=== PATIENT | male | born 1975 | race Caucasian/White ===

== ENCOUNTER → 2019-12-14 15:13 | Outpatient (BNVA) | payer OTHER, SELFPAY | PROVIDERS: Family Provider Urology; PCP Urology; Visit Provider Internal Medicine | DX: E03.9 Hypothyroidism, unspecified (principal) | CPT/HCPCS: 84443 ==

== ENCOUNTER → 2020-04-18 13:26 | Outpatient (BNVA) | payer OTHER, SELFPAY | PROVIDERS: Family Provider Urology; PCP Urology; Visit Provider Nurse Practitioner Family | DX: R30.0 Dysuria (principal); N30.01 Acute cystitis with hematuria | CPT/HCPCS: 81000 ==

== ENCOUNTER → 2020-04-19 09:02 | Outpatient (BNVA) | payer OTHER, SELFPAY | PROVIDERS: Family Provider Urology; PCP Urology; Visit Provider Nurse Practitioner Family | DX: R30.0 Dysuria (principal); N30.01 Acute cystitis with hematuria | CPT/HCPCS: 87491; 87591 ==

== ENCOUNTER → 2020-04-26 16:34 | Outpatient (BNVA) | payer OTHER, SELFPAY | PROVIDERS: Family Provider Urology; PCP Urology; Visit Provider Nurse Practitioner Family | DX: Z20.828 Contact with and (suspected) exposure to other viral communicable diseases (principal) | CPT/HCPCS: 87635 ==

== ENCOUNTER 2020-05-19 14:42 | Outpatient (CLI) | payer OTHER, SELFPAY ==
--- NOTE | 2020-05-19 15:00 | XR_ITS ---
WS: [id number] ABDOMEN: SUPINE FILM HISTORY: KIDNEY STONE COMPARISON: 10/05/2014 Increased amount of air within the colon. No organomegaly. Right kidney: No renal or ureteral stone identified. Left kidney: 5 mm calcification projects over the expected location of the mid LEFT kidney. No ureter al calcification. XR/XR KUB [id number] IMPRESSION: 5 mm LEFT renal calcification.
== END 2020-05-19 14:43 | disposition home or self-care (01) ==
LOC: RAD 14:55
PROVIDERS: PCP Nurse Practitioner Family; Visit Provider Nurse Practitioner Family
DX: N20.0 Calculus of kidney (principal)
CPT/HCPCS: 74018; 81003

== ENCOUNTER → 2020-05-20 14:14 | Outpatient (BNVA) | payer OTHER, SELFPAY | PROVIDERS: PCP Nurse Practitioner Family; Visit Provider Urology | DX: N20.0 Calculus of kidney (principal) | CPT/HCPCS: 82365; 88300 ==

== ENCOUNTER 2020-08-04 18:27 | Observation (INO) | payer OTHER, SELFPAY ==
[2020-08-04 18:35] VITALS: BP 151/70; PULSE 83; RESP 16; TEMP 36.5; O2SAT 100; BMI 22.6
[2020-08-04 19:17] LABS: Basophils % 0.4 %; Eosinophils % 0.4 %; Hematocrit 42.7 % (42.0-52.0); Hemoglobin 14.6 g/dL (11.7-16.6); Lymphocytes # 1.2 10^3/uL (0.8-4.8); Lymphocytes % 12.1 %; Mean Corpuscular HGB Conc 34.2 g/dL (30.0-36.0); Mean Corpuscular Hemoglobin 30.5 pg (28.0-34.0); Mean Corpuscular Volume 89.3 fL (80-94); Mean Platelet Volume 9.3 fL (7.4-10.4); Monocytes # 0.3 10^3/uL (0.2-0.9); Monocytes % 2.5 %; Neutrophils # 8.33 10^3/uL (1.8-7.7); Neutrophils % 84.4 %; Nucleated Red Blood Cells % 0 %; Platelet Count 245 10^3/cmm (130-400); Red Blood Count 4.78 10^6/uL (4.1-5.3); Red Cell Distribution Width 12.9 % (12.1-15.1); White Blood Count 9.9 10^3/uL (4.0-10.0)
[2020-08-04 19:36] LABS: Amphetamines Screen Urine Negative (Negative); Barbiturates Screen Urine Negative (Negative); Benzodiazepines Screen Urine Negative (Negative); Cocaine Screen Urine Negative (Negative); Opiate Screen Urine Negative (Negative); PCP Screen Urine Negative (Negative); THC Screen Urine Negative (Negative)
[2020-08-04 19:40] LABS: Alanine Aminotransferase 30 U/L (0-41); Albumin Level 4.7 g/dL (3.5-5.2); Alkaline Phosphatase 69 IU/L (40-130); Anion Gap 15.1 (5-19); Aspartate Amino Transferase 22 U/L (0-40); Blood Urea Nitrogen 13 mg/dL (6-20); Calcium 9.7 mg/dL (8.5-10.5); Carbon Dioxide 25 mmol/L (22-29); Chloride 103 mmol/L (98-107); Globulin 2.7 g/dL (1.3-4.6); Glomerular Filtration Rate 80.8 mL/min (90-130); Glucose 111 mg/dL (65-115); Osmolality Calculated 289 mOsm/kg (285-295); Potassium 4.1 mmol/L (3.5-5.1); Sodium 139 mmol/L (136-145); Total Bilirubin 0.3 mg/dL (0.15-1.2); Total Protein 7.4 g/dL (6.6-8.7)
--- NOTE | 2020-08-04 19:41 | PC.NURSE ---
patient changed out into gown and paper scrubs with belongings placed into patient belonging bag. Patient's brother is in room and stated that he will take patient belongings home with him. Patient belongings consist of 1 pair blue jeans, 1 shirt, 1 jacket, 1 pair cowboy boots, 1 ball cap, and patient wallet.
[2020-08-04 19:50] LABS: Acetaminophen < 5.0 ug/mL (10-30); Alcohol Level < 10 mg/dL (0-10); Salicylate < 0.3 mg/dL (3-10)
[2020-08-04 21:40] VITALS: PULSE 82; RESP 18; O2SAT 99
[2020-08-04 22:00] VITALS: BP 131/87; PULSE 75; RESP 18; TEMP 36.9; O2SAT 100
--- NOTE | 2020-08-04 23:16 | ED_ITS ---
HPI - Psych General: Chief Complaint: Psychiatric Symptoms Stated Complaint: SI Time Seen by Provider: 08/04/20 18:46 Source: patient and family Mode of arrival: ambulatory Limitations: no limitations History of Present Illness: HPI Narrative: Patient is a 45-year-old male who presents to the emergency department with complaints of suicidal ideation. He states that he has significant life stressors and may be running into some legal trouble and he would rather just kill himself than go through the legal hospitals. He has suicidal ideations but does not have a specific plan. He however appears depressed and would like to be admitted to the neuropsychiatric unit. complaint: suicidal ideation and feels depressed Duration: constant History of same: No Relieving factors: none Context: significant life stressor Associated psychiatric symptoms: depression and suicidal ideation Associated symptoms: Reports suicidal ideation; Deny auditory hallucinations, visual hallucinations, delusions, depression, homicidal ideation or racing thoughts Review of Systems General: Reports: 10 or more systems reviewed and unremarkable except in HPI and below Const: Denies: fever(s), chills or body aches Eyes: Denies: change in vision or blurry vision ENMT: Denies: throat pain, enlarged tonsils, odynophagia, hoarseness, mouth pain or swelling of lips/tongue Card: Denies: palpitations, irregular heart rhythm, edema or swelling of feet/ankles Resp: Denies: dyspnea, productive cough or non-productive cough GI: Denies: abdominal pain, nausea or vomiting : Denies: flank pain, dysuria, urinary frequency, urinary urgency or urinary hesitancy Musc: Denies: neck pain, back pain or extremity swelling Skin/Breast: Denies: rash, pruritus or erythema Neuro: Denies: headache(s), numbness in extremities or weakness in extremities Psych: Reports: suicidal ideation; Denies: depression, visual hallucinations, auditory hallucinations or homicidal ideation Endo: Denies: polyuria, polydipsia or tired all the time PFSH ED PFSH: Medical History (Reviewed 08/04/20 @ 23:18 by Derek Cotton MD, [facility] [place]) Genital herpes in men Hypothyroidism, unspecified Kidney calculi Family History (Reviewed 08/04/20 @ 23:18 by Derek Cotton MD, [facility] [place]) Other Cancer Heart disease Social History (Reviewed 03/04/21 @ 23:18 by Derek Cotton MD, [facility] [place]) Smoking and tobacco status: never smoked Alcohol intake: never Substance/Drug Use: never Adopted: No Caregiver/support person: No Lives independently: Yes Household members: spouse Housing: House Marital status: Current occupational status: employed Physical Exam Const: COMMON NORMALS: no acute distress, average body habitus, patient oriented x3, no limitations, healthy appearing, alert and well nourished HENMT: COMMON NORMALS: normocephalic, atraumatic and moist oral mucous membranes HEAD & SCALP: normocephalic and atraumatic Neck/C-Spine: COMMON NORMALS: no meningeal signs and no JVD Resp: COMMON NORMALS: normal respiratory effort, No retractions, No use of accessory muscles, clear to auscultation bilaterally and percussion normal AUSCULTATION: clear to auscultation bilaterally PERCUSSION: percussion normal Cardio: COMMON NORMALS: no JVD, regular rate, regular rhythm, S1 normal heart sound present, S2 normal heart sound present, No gallops present (Cardio), No clicks present (Cardio), No murmurs present (Cardio), No rub (Cardio) and Peripheral pulses 2+ throughout RATE: regular rate RHYTHM: regular rhythm HEART SOUNDS: S1 normal heart sound present and S2 normal heart sound present PERIPHERAL PULSES: Peripheral pulses 2+ throughout GI: COMMON NORMALS: Normal to inspection, nondistended, normoactive bowel sounds present, Soft to palpation, non-tender, No hepatosplenomegaly present, no masses and no bruits PALPATION: Yes Soft to palpation and Yes No hepatosplenomegaly present Extremity: COMMON NORMALS: normal to inspection, full ROM, capillary refill normal, no calf tenderness and no pedal edema Neuro: COMMON NORMALS: patient oriented x3 SENSORIUM/ORIENTATION: Yes alert MENINGEAL SIGNS: Yes no meningeal signs Psych: SPEECH: Yes slow MOOD & AFFECT: Yes depressed mood THOUGHT CONTENT: No delusions Skin: COMMON NORMALS: no rashes or lesions noted, no wounds, turgor normal, no jaundice, no petechiae and no mottling GENERAL SKIN EXAM: no rashes or lesions noted and turgor normal MDM - Psych MDM Narrative: Medical decision making narrative: Patient is a 45-year-old male who presents to the emergency department with suicidal ideation. He is medically cleared in the ED and admitted to the neuropsychiatric unit for further evaluation and management. Medical Records: Attestation: I reviewed the patient's medical records. Lab Data: Attestation: I reviewed the patient's lab results. Labs: Lab Results 08/04/20 08/04/20 08/04/20 Range/Units 19:08 19:08 19:12 WBC 9.9 (4.0-10.0) 10^3/ uL RBC 4.78 (4.1-5.3) 10^6/u L Hgb 14.6 (11.7-16.6) g/dL Hct 42.7 (42.0-52.0) % MCV 89.3 (80-94) fL MCH 30.5 (28.0-34.0) pg MCHC 34.2 (30.0-36.0) g/dL RDW 12.9 (12.1-15.1) % Plt Count 245 (130-400) 10^3/c mm MPV 9.3 (7.4-10.4) fL Neut % (Auto) 84.4 % Lymph % (Auto) 12.1 % [place] % (Auto) 2.5 % Eos % (Auto) 0.4 % Baso % (Auto) 0.4 % Neut # (Auto) 8.33 H (1.8-7.7) 10^3/u L Lymph # (Auto) 1.2 (0.8-4.8) 10^3/u L [place] # (Auto) 0.3 (0.2-0.9) 10^3/u L Eos # (Auto) 0.0 (0.0-0.8) 10^3/u L Baso # (Auto) 0.0 (0.0-0.1) 10^3/u L Nucleated RBC % (a uto) 0 % Nucleated RBCs # 0.0 /100WBC Sodium 139 (136-145) mmol/L Potassium 4.1 (3.5-5.1) mmol/L Chloride 103 (98-107) mmol/L Carbon Dioxide 25 (22-29) mmol/L Anion Gap 15.1 (5-19) BUN 13 (6-20) mg/dL Creatinine 1.0 (0.7-1.2) mg/dL GFR Calculation 80.8 L (90-130) mL/min Glucose 111 (65-115) mg/dL Calculated Osmolal ity 289 (285-295) mOsm/k g Calcium 9.7 (8.5-10.5) mg/dL Total Bilirubin 0.3 (0.15-1.2) mg/dL AST 22 (0-40) U/L ALT 30 (0-41) U/L Alkaline Phosphata se 69 (40-130) IU/L Total Protein 7.4 (6.6-8.7) g/dL Albumin 4.7 (3.5-5.2) g/dL Globulin 2.7 (1.3-4.6) g/dL Salicylates < 0.3 L (3-10) mg/dL Urine Opiates Scre en Negative (Negative) ng/mL Acetaminophen < 5.0 L (10-30) ug/mL Ur Barbiturates Sc reen Negative (Negative) ng/mL Ur Phencyclidine S crn Negative (Negative) ng/mL Ur Amphetamines Sc reen Negative (Negative) ng/mL U Benzodiazepines Scrn Negative (Negative) ng/mL Urine Cocaine Scre en Negative (Negative) ng/mL U Marijuana (THC) Screen Negative (Negative) ng/mL Ethyl Alcohol < 10 (0-10) mg/dL Discharge Plan Discharge Patient Disposition: Admitted As Inpatient Admit Provider: Sandoval Holm Clinical Impression: Suicidal ideation Condition: Stable Coding Level of Care Code ED Basket Assembler for Phil Temple
[2020-08-05 06:00] VITALS: BP 115/67; PULSE 97; RESP 18; TEMP 37.7; O2SAT 99
[2020-08-05] MEDS: pantoprazole DR 40 mg Tablet PO (07:58)
[2020-08-05] MEDS: acyclovir 400 mg Tablet PO ×2 (07:58→16:34)
[2020-08-05] MEDS: levothyroxine 100 mcg Tablet PO (07:58)
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
[2020-08-05 14:00] VITALS: BP 113/65; PULSE 78; RESP 18; TEMP 36.4; O2SAT 96
--- NOTE | 2020-08-05 17:14 | PM.NDC ---
Diagnoses at Discharge Discharge Diagnosis (1) Suicidal ideation: Status: Resolved (2) Hypothyroidism, unspecified: Status: Acute Qualifiers: Hypothyroidism type: acquired Qualified Code(s): E03.9 - Hypothyroidism, unspecified (3) Genital herpes in men: Status: Acute (4) Adjustment disorder with mixed disturbance of emotions and conduct: Status: Acute (5) Intellectual disability: Status: Acute (6) Impulse control disorder: Status: Acute Reason for Visit Reason for Visit: SI Hospital Course Hospital Course Sam presented to the emergency department after reports of suicidal thinking. There was a significant issue in his life and concerns for safety. He was admitted to the neuropsychiatric unit for definitive treatment of those issues. After admission he was able to converse with this internal communications writer around the circumstances in his life. He denied any need for any medications or inpatient treatment reporting that he just needed to face the issues that were waiting for him. He was able to contract for safety prior to discharge. During the hospitalization, patient had routine laboratory studies which were within normal limits except for few outliers. Additionally there was a general medical evaluation which was also within normal limits and revealed no new acute processes. Discharge Summary: At the time of discharge, lethality was denied and psychosis was resolving. Mood and anxiety were well managed. Patient endorsed a plan to avoid all drugs of abuse and follow-up with the aftercare recommendations of the treatment team. Patient was evaluated and deemed to be absent credible lethality, and had achieved the maximum benefit from an inpatient hospitalization, so was discharged. Mental Status Exam MSE Comments: This is a well-nourished, well-developed diminutive white male in hospital scrubs with adequate making eye contact. No abnormal movements except for mild psychomotor retardation. Cooperative exam in no acute distress. Speech was slightly decreased rate and volume. Mood described okay/good as can be expected, affect congruent. Thought process organized. Thought content: Patient denied current suicidal or homicidal ideation, there are no delusions reported or noted, he denies any auditory or visual hallucination. Attention and concentration appear intact and memory appeared reliable but none were formally tested. He is alert and oriented x3. Insight and judgment are limited, impulse control is limited, impulse control is fair. Discharge Data Data Completed and Pending: Labs from last 24 hours 08/04/20 08/04/20 08/04/20 19:12 19:08 19:08 WBC 9.9 RBC 4.78 Hgb 14.6 Hct 42.7 MCV 89.3 MCH 30.5 MCHC 34.2 RDW 12.9 Plt Count 245 MPV 9.3 Neut % (Auto) 84.4 Lymph % (Auto) 12.1 [place] % (Auto) 2.5 Eos % (Auto) 0.4 Baso % (Auto) 0.4 Neut # (Auto) 8.33 H Lymph # (Auto) 1.2 [place] # (Auto) 0.3 Eos # (Auto) 0.0 Baso # (Auto) 0.0 Nucleated RBC % (a uto) 0 Nucleated RBCs # 0.0 Sodium 139 Potassium 4.1 Chloride 103 Carbon Dioxide 25 Anion Gap 15.1 BUN 13 Creatinine 1.0 GFR Calculation 80.8 L Glucose 111 Calculated Osmolal ity 289 Calcium 9.7 Total Bilirubin 0.3 AST 22 ALT 30 Alkaline Phosphata se 69 Total Protein 7.4 Albumin 4.7 Globulin 2.7 Salicylates < 0.3 L Urine Opiates Scre en Negative Acetaminophen < 5.0 L Ur Barbiturates Sc reen Negative Ur Phencyclidine S crn Negative Ur Amphetamines Sc reen Negative U Benzodiazepines Scrn Negative Urine Cocaine Scre en Negative U Marijuana (THC) Screen Negative Ethyl Alcohol < 10 Vitals: Last Vital Signs Temp 97.6 F 08/05/20 14:00 Pulse 78 08/05/20 14:00 Resp 18 08/05/20 14:00 BP 113/65 08/05/20 14:00 Pulse Ox 96 08/05/20 14:00 Discharge Plan Discharge Patient Disposition: Home Condition: Stable Prescriptions: Continued omeprazole 20 mg capsule,delayed release(DR/EC) 20 mg PO DAILY RF: 0 levothyroxine [Synthroid] 100 mcg tablet 100 mcg PO DAILY Qty: 90 RF: 3 acyclovir 400 mg tablet 400 mg PO BID Qty: 180 RF: 0 Discharge Orders: Discharge Order (Routine); Ordered 08/05/20 Ordered By: Sandoval Holm Discharge Diet: Regular Discharge Activity: Resume usual activity Patient Instructions: Depression, Suicide Prevention for Adults (DC), Anxiety (DC) Discharge Attestations NPU Time Spent in Discharge Care*: less than 30 min Specific Discharge Activities: Specific discharge activities: educating patient, discussing with sample case porter/social workers/dc planners, documenting/other paperwork and evaluating patient/reviewing data Coding Level of Care Code Acute Timber Management Specialist for Chg Fwd Diagnoses Suicidal ideation R45.851 Hypothyroidism, unspecified E03.9 Hypothyroidism type: acquired Genital herpes in men A60.02 Adjustment disorder with mixed disturbance of emotions and conduct F43.25 Intellectual disability F79 Impulse control disorder F63.9
[2020-08-05 17:19] VITALS: BP 113/65; PULSE 78; RESP 18; TEMP 36.4; O2SAT 96
[2020-08-05] MEDS: calcium carbonate 500 mg Chew Tablet 1000 MG PO (17:26)
== END 2020-08-05 17:28 | disposition home or self-care (01) ==
LOC: ER 21:00 → NP 23:20
PROVIDERS: Emergency Medicine; Admitting Provider Psychiatry & Neurology Psychiatry; Emergency Provider Family Medicine; PCP Nurse Practitioner Family; Visit Provider Psychiatry & Neurology Psychiatry
DX: R45.851 Suicidal ideations (principal); E03.9 Hypothyroidism, unspecified; A60.02 Herpesviral infection of other male genital organs; F43.25 Adjustment disorder with mixed disturbance of emotions and conduct; F79 Unspecified intellectual disabilities; F63.9 Impulse disorder, unspecified
CPT/HCPCS: 80053; 80306; 80307; 85025; 99285; G0378; J8499